=== PATIENT | female | born 2000 | race African-American/Black ===

== ENCOUNTER 2019-06-02 06:57 | Emergency (ER) | payer MEDICAID ==
[~2019-06-02] VITALS: Ht 167.6 cm; Wt 80.0 kg
[~2019-06-02 06:57] MED LIST: DEXM30CP PO; [UNRECOGNIZED DRUG - REMARK]
[2019-06-02] MEDS ORDERED: ONDANSETRON HCL 4MG/2ML INJ IV STA (07:14)
[2019-06-02] MEDS ORDERED: MORPHINE SULFATE 4 MG/ML CPJ (NOT FOR IM USE) IV STA (07:14)
[2019-06-02] MEDS ORDERED: SODIUM CHLORIDE 0.9% 1,000 ML IV ONE (07:14)
[2019-06-02] MEDS ORDERED: FAMOTIDINE 20MG/2ML VIAL IV STA (07:14)
[2019-06-02 07:58] LABS: BASOPHILS % 0.6 % (0.0-2.0); EOSINOPHILS % 0.9 % (0.0-5.0); HEMATOCRIT. 38.2 % (36.0-48.0); HEMOGLOBIN. 12.6 g/dL (12.0-16.0); LYMPHOCYTES % 43.6 % (20.0-50.0); MEAN CORPUSCULAR HEMOGLOBIN 26.4 pg (28.0-32.0); MEAN CORPUSCULAR VOLUME 80.3 fL (81.0-99.0); MEAN PLATELET VOLUME 9.6 fl (7.4-10.4); MONOCYTES % 7.6 % (2.0-8.0); NEUTROPHILS % 47.3 % (40.0-76.0); PLATELET 306 x1000/uL (130-400); RED BLOOD CELL COUNT 4.76 mill/uL (4.2-5.4); RED CELL DISTRIBUTION WIDTH 16.5 % (11.6-14.6)
[2019-06-02 08:04] LABS: INR 1.1; PROTHROMBIN TIME 11.6 sec (9.6-11.0)
[2019-06-02 08:07] LABS: CHLORIDE 111 mEq/L (98-107)
[2019-06-02 08:12] LABS: HCG SCREEN NEGATIVE
[2019-06-02 10:46] LABS: KETONES URINE 2+ (NEGATIVE); LEUKOCYTE ESTERASE URINE 1+ (NEGATIVE); NITRITE URINE NEGATIVE (NEGATIVE); OCCULT BLOOD URINE 3+ (NEGATIVE); PH URINE 6.5 (4.5-8.0); PROTEIN URINE 2+ (NEGATIVE)
[2019-06-02 10:48] LABS: CLARITY URINE CLOUDY (CLEAR); COLOR URINE BLOODY (YELLOW)
[2019-06-02] MEDS ORDERED: CEFTRIAXONE 1 G PREMIX 50 ML IV ONE (11:00)
[2019-06-02 11:08] LABS: *AMPHETAMINES SCREEN URINE NEGATIVE (NEGATIVE); *BARBITURATES SCREEN URINE NEGATIVE (NEGATIVE); *BENZODIAZEPINES SCREEN URINE NEGATIVE (NEGATIVE); *COCAINE SCREEN URINE NEGATIVE (NEGATIVE)
[2019-06-02 11:09] LABS: METHADONE URINE SCREEN NEGATIVE (NEGATIVE); PHENCYCLIDINE URINE SCREEN NEGATIVE (NEGATIVE)
[2019-06-02 11:17] LABS: CANNABINOID URINE SCREEN PRESUMTIVE POSITIVE (NEGATIVE); OPIATES URINE SCREEN PRESUMTIVE POSITIVE (NEGATIVE)
[2019-06-02] MEDS ORDERED: KETOROLAC 30MG/ML VIAL IV ONE (12:00)
[2019-06-02 13:00] VITALS: BP 112/62
== END 2019-06-02 13:34 | disposition home or self-care (01) ==
LOC: ER 07:20
DX: N39.0 Urinary tract infection, site not specified (principal)
CPT/HCPCS: 36415; 74176; 80053; 80305; 81003; 83690; 84703; 85025; 85610; 87086; 96361; 96365; 96375; 99284; J0696; J1885; J2270; J2405; J3490; J7030